=== PATIENT | female | born 1950 | race Caucasian/White ===

== ENCOUNTER 2016-03-26 20:10 | Observation (INO) | payer OTHER, MEDICARE ==
[~2016-03-26] VITALS: Ht 157.5 cm; Wt 68.9 kg
--- NOTE | 2016-03-26 20:42 | NUR ---
PT TO ED FOR FEELING "FUNNY" PER PT AND , THEY WERE AT A [employer] DINNER "AND SHE JUST WENT BLANK, LIKE SHE WASN'T THERE AND HER PUPILS WERE ALL DIALATED AND THEN IT WAS LIKE SHE WOKE UP AND SHE SAID SHE WAS DIZZY" PT NOW IN ED REPORTING FEELING "HEAVY" IN THE FRONT OF HER HEAD. ALL NEUROS GROSSLY INTACT, PERRLA, HAND GRASPS STRONG AND EQUAL.
--- NOTE | 2016-03-26 21:31 | ED AMS/SEIZURE/WEAK/DIZZY ---
History of Present Illness General Chief Complaint: General Adult Stated Complaint: "EPISODE AT DINNER, FELT OUT OF IT" PER PT Source: patient, family Exam Limitations: no limitations Vital Signs & Intake/Output Vital Signs & Intake/Output Vital Signs Date Time Temp Pulse Resp B/P Pulse O2 O2 Flow FiO2 Ox Delivery Rate 03/26 2237 97.5 97 20 98/60 99 Room Air 03/26 2037 97.1 109 18 118/75 100 Room Air ED Intake and Output 03/27 0000 03/26 1200 Intake Total Output Total Balance Patient 152 lb Weight Allergies Coded Allergies: No Known Allergies (03/26/16) Triage Note: PT TO ED FOR FEELING "FUNNY" PER PT AND , THEY WERE AT A [employer] "AND SHE JUST WENT BLANK, LIKE SHE WASN'T THERE AND HER PUPILS WERE ALL DIALATED AND THEN IT WAS LIKE SHE WOKE UP AND SHE SAID SHE WAS DIZZY" PT NOW IN ED REPORTING FEELING "HEAVY" IN THE FRONT OF HER HEAD. ALL NEUROS GROSSLY INTACT, PERRLA, HAND GRASPS STRONG AND EQUAL. Triage Nurses Notes Reviewed? yes Onset: Abrupt Duration: minute(s): Timing: single episode today Injury Environment: home Severity: moderate Modifying Factors: Improves With: rest. Associated Symptoms: diaphoresis HPI: 65 yo woman h/o diabetes, htn, hyperlipidemia, presents with episode of loss of consciousness while eating dinner at a restaurant. "I was just sitting there... Then my said that I just started staring straight ahead... I wasn't responsive... I looked pale and ashen." She does not recall the incident. She notes that she feels, "funny and a little out of it." The incident lasted several minutes. She is otherwise well. Past History Travel History Traveled to [place] past 21 day No Medical History Any Pertinent Medical History? see below for history Neurological: NONE EENT: NONE Cardiovascular: hypertension, HIGH CHOLESTEROL Respiratory: NONE Gastrointestinal: NONE Hepatic: NONE Renal: NONE Musculoskeletal: NONE Psychiatric: NONE Endocrine: diabetes Blood Disorders: NONE Cancer(s): NONE Surgical History Surgical History: none Psychosocial History What is your primary language Turkish Tobacco Use: Never used ETOH Use: denies use Illicit Drug Use: denies illicit drug use Family History Hx Contributory? No Review of Systems Review of Systems Constitutional: Reports: no symptoms. EENTM: Reports: no symptoms. Respiratory: Reports: no symptoms. Cardiovascular: Reports: no symptoms. GI: Reports: no symptoms. Genitourinary: Reports: no symptoms. Musculoskeletal: Reports: no symptoms. Skin: Reports: no symptoms. Neurological/Psychological: Reports: no symptoms. Hematologic/Endocrine: Reports: no symptoms. Immunologic/Allergic: Reports: no symptoms. All Other Systems: Reviewed and Negative Physical Exam Physical Exam General Appearance: well developed/nourished, mild distress Head: atraumatic, normal appearance Eyes: Bilateral: normal appearance, PERRL, EOMI. Ears, Nose, Throat: normal pharynx, normal ENT inspection, hearing grossly normal Neck: normal inspection, supple, full range of motion Respiratory: normal breath sounds, chest non-tender, no respiratory distress, quiet respiration, lungs clear Cardiovascular: regular rate/rhythm Gastrointestinal: normal bowel sounds, soft, non-tender, no organomegaly Back: normal inspection Extremities: normal range of motion Neurologic/Psych: no motor/sensory deficits, awake, alert, oriented x 3 Skin: intact, normal color Core Measures ACS in differential dx? No CVA/TIA Diagnosis: No Severe Sepsis Present: No Septic Shock Present: No Progress Differential Diagnosis: dysrhythmia vs pre-syncope vs mi vs other. Plan of Care: Orders Procedure Date/time Status Nothing by Mouth 03/27 B Active Patient Data 03/27 25 Active Saline Lock 03/[address] in observation 03/27 17 Active Misc Message 03/27 17 Active ED Holding Orders 03/27 17 Active Vital Signs 03/27 17 Active Code Status 03/27 17 Active TROPONIN LEVEL 03/26 2045 Complete COMPREHENSIVE METABOLIC PANEL 03/26 2045 Complete CBC WITHOUT DIFFERENTIAL 03/26 2045 Complete EKG 03/26 2045 Active Laboratory Tests 03/26/16 2144: Anion Gap 14, Estimated GFR 50 L, BUN/Creatinine Ratio 31.8 H, Glucose 183 H, Calcium 9.8, Total Bilirubin 0.6, AST 17, ALT 29, Alkaline Phosphatase 65, Troponin I < 0.01, Total Protein 6.5, Albumin 4.0, Globulin 2.5, Albumin/ Globulin Ratio 1.6, CBC w Diff NO MAN DIFF REQ, RBC 4.79, MCV 90.0, MCH 29.9, RDW 13.8, MPV 7.4, Gran % 71.4, Lymphocytes % 19.7 L, Monocytes % 6.9, Eosinophils % 1.7, Basophils % 0.3, Absolute Granulocytes 10.1 H, Absolute Lymphocytes 2.8, Absolute Monocytes 1.0 H, Absolute Eosinophils 0.2, Absolute Basophils 0, PUBS MCHC 33.2 Diagnostic Imaging: Viewed by Me: Radiology Read, CT Scan. Discussed w/RAD: Radiology Read, CT Scan. Initial ED EKG: normal axis, normal intervals, normal p-waves, normal QRS complex, normal sinus rhythm Departure Departure Disposition: STILL A PATIENT Condition: Stable Clinical Impression Primary Impression: Syncope Referrals: KATE PRINGLE,CANDY Yoon (PCP/Family) Departure Forms: Customer Survey General Discharge Information Observation Note Spoke With: LAWRENCE PRINGLE,EARL Mendoza Physician Advisor Notified: SONYA CORDOVA DO Place Patient In: Non-ED OBS Care Area Rationale for Observation: My rational for observation is as follows . pt with syncope, with multiple risk factors... merits rule out, monitoring, cards eval in am.
[2016-03-26 21:59] LABS: ABSOLUTE BASOPHIL COUNT 0 /CUMM (0.0-0.2); ABSOLUTE EOSINOPHIL COUNT 0.2 /CUMM (0.0-0.7); ABSOLUTE GRANULOCYTE CT 10.1 /CUMM (1.4-6.5); ABSOLUTE LYMPH COUNT 2.8 /CUMM (1.2-3.4); BASOPHIL % 0.3 % (0.0-2.0); EOSINOPHIL % 1.7 % (0-5); GRANULOCYTE % 71.4 % (42.2-75.2); HEMATOCRIT 43.1 % (37-47); MEAN CORPUSCULAR HGB 29.9 PG (27.0-31.0); MEAN CORPUSCULAR HGB CONC 33.2 G/DL (33.0-37.0); MEAN PLATELET VOLUME 7.4 FL (7.4-10.4); PLATELET COUNT 268 /CUMM (130-400); RBC DISTRIBUTION WIDTH 13.8 % (11.5-14.5); RED BLOOD CELL CT 4.79 /CUMM (4.20-5.40); WHITE BLOOD CELL COUNT 14.1 /CUMM (4.8-10.8)
--- NOTE | 2016-03-26 22:00 | NUR ---
PT A/O X4.RESP UNLABORED. SKIN WARM AND DRY. PT DENIES CP, SOB, DIZZINESS. NO APPARENT DISTRESS. FAMILY AT BEDSIDE
--- NOTE | 2016-03-26 22:43 | CT SCAN REPORT ---
EXAMINATION: CT HEAD WITHOUT CONTRAST CLINICAL INFORMATION: Altered mental status. COMPARISON: None. TECHNIQUE: Contiguous axial imaging was performed from the skull base to vertex without intravenous administration of contrast. DLP: 600 mGy-cm. FINDINGS: No acute intracranial abnormality. No acute intracranial hemorrhage, mass or mass effect or abnormal extra-axial fluid collections. The density within the dural venous sinuses is within normal limits. The ventricles are normal in size, without hydrocephalus. There are no focal areas of hypoattenuation within a vascular distribution to suggest acute transcortical ischemia. The basilar cisterns are patent. No acute calvarial abnormality is identified. Soft tissues appear unremarkable. The imaged paranasal sinuses and mastoid air cells are well aerated. IMPRESSION: No acute intracranial abnormality.
--- NOTE | 2016-03-26 23:00 | NUR ---
PT APPEARS COMFORTABLE. FAMILY AT BEDSIDE. NO APPARENT DISTRESS
--- NOTE | 2016-03-26 23:16 | RADIOLOGY REPORT ---
EXAMINATION: XR PORTABLE CHEST CLINICAL INFORMATION: Syncope. COMPARISON: None. TECHNIQUE: Portable view of the chest was obtained. 11:01 PM FINDINGS: No significant abnormality is noted involving the heart, lungs, mediastinum, bony thorax or soft tissues. IMPRESSION: No acute abnormality of the chest.
--- NOTE | 2016-03-27 00:19 | NUR ---
PT SLEEPING. RESP UNLABORED. NSR ON THE MONITOR. NO APPARENT DISTRESS
--- NOTE | 2016-03-27 00:35 | History & Physical ---
CHARO PRINGLE,[facility] 03/27/16 0034: General Information and HPI MD Statement: I have seen and personally examined TYLER GALAN and documented this H&P. The patient is a 65 year old F who presented with a patient stated chief complaint of syncope. Source of Information: patient Exam Limitations: no limitations History of Present Illness: This is a 65-year-old lady with past medical history significant for dyslipidemia, diabetes, hypertension, who presented to the hospital with chief complaint of brief episode of loss of consciousness. According to the patient, earlier today while she was eating dinner at a restaurant, her noticed the patient becoming pale, staring straight ahead and unresponsive for a brief period of time. Patient does not remember the event. However she does state that it was only a brief period of a 1-2 minutes. Patient reports that the stone has been everybody was around she did not exhibit any facial droop, impaired speech, or any focal neurological deficit. Denies headache, fall, dizziness, lightheadedness, shortness of breath, chest pain, palpitation, abdominal pain, seizure-like activity, confusion, urinary and bowel incontinence, vertigo, or a tinnitus. Allergies/Medications Allergies: Coded Allergies: No Known Allergies (03/26/16) Past History Travel History Traveled to [place] past 21 day No Medical History Neurological: NONE EENT: NONE Cardiovascular: hypertension, HIGH CHOLESTEROL Respiratory: NONE Gastrointestinal: NONE Hepatic: NONE Renal: NONE Musculoskeletal: NONE Psychiatric: NONE Endocrine: diabetes Blood Disorders: NONE Cancer(s): NONE Surgical History Surgical History: none Past Family/Social History Psychosocial History ETOH Use: denies use Illicit Drug Use: denies illicit drug use Review of Systems Review of Systems Constitutional: Denies: diaphoresis, malaise, weakness. EENTM: Denies: blurred vision, double vision, visual changes. Cardiovascular: Denies: see HPI. Respiratory: Reports: see HPI. GI: Denies: constipation, diarrhea. Genitourinary: Denies: dysuria, frequency, hematuria, hesitation. Musculoskeletal: Denies: joint pain, joint swelling, muscle pain, muscle stiffness. Skin: Denies: change in skin color, erythema, jaundice, lesions. Neurological/Psychological: Denies: anxiety, cognitive dysfunction, confusion, depressed, headache, numbness , paresthesia, pre-existing deficit, petit mal seizures, tremors, tonic-clonic seizures. Hematologic/Endocrine: Denies: bruising, bleeding, polyuria. Immunologic/Allergic: Reports: no symptoms. Exam & Diagnostic Data Last 24 Hrs of Vital Signs/I&O Vital Signs Date Time Temp Pulse Resp B/P Pulse O2 O2 Flow FiO2 Ox Delivery Rate 03/27 1623 98.8 80 16 134/71 96 Room Air 03/27 1325 97.0 74 20 115/56 96 Room Air 03/27 1155 97.0 80 20 111/61 96 03/27 1101 79 109/60 03/27 1049 79 15 109/60 96 Room Air Room Air 03/27 0954 99.0 80 18 110/70 98 Room Air 03/27 0952 98.0 85 18 110/70 98 Room Air 03/27 0819 Room Air Room Air 03/27 0804 98.2 78 20 100/62 96 Room Air 03/27 0800 98.0 98 100/62 03/26 2238 97.5 97 20 98/60 99 Room Air 03/26 2038 97.1 109 18 118/75 100 Room Air Intake & Output 03/27 1600 03/27 0800 03/27 0000 Intake Total 2079 Output Total Balance 2079 Intake, IV 500 Intake, Oral 1580 Patient 68.946 kg 68.946 kg Weight Physical Exam General Appearance Alert, Oriented X3, Cooperative, No Acute Distress Skin No Breakdown, No Significant Lesion HEENT Atraumatic, PERRLA, EOMI, Mucous Membr. moist/pink Neck Supple, No JVD, No thryomegaly, +2 Carotid Pulse wo Bruit, No LAD Lymphatic Cervical nl Cardiovascular Regular Rate, Normal S1, Normal S2, No Murmurs, Gallops Lungs Clear to Auscultation, Normal Air Movement Abdomen Normal Bowel Sounds, Soft, No Tenderness Neurological Normal Gait, Normal Speech, Strength at 5/5 X4 Ext, Normal Tone, Sensation Intact, Cranial Nerves 3-12 NL, Reflexes 2+, no dysmetria, dysdiadochokinesia, or gait abnormality noted Extremities No Clubbing, No Cyanosis, No Edema, Normal Pulses, No Tenderness/ Swelling Vascular Normal Pulses, Pulses Symmetrical Last 24 Hrs of Labs/Fabián: Laboratory Tests 03/27/16 0600: Sodium Cancelled, Potassium Cancelled, Chloride Cancelled, Carbon Dioxide Cancelled, Anion Gap Cancelled, BUN Cancelled, Creatinine Cancelled, BUN/ Creatinine Ratio Cancelled, Triglycerides Cancelled, Cholesterol Cancelled, LDL Cholesterol, Calc Cancelled, HDL Cholesterol Cancelled, Cholesterol/HDL Ratio Cancelled, TSH Cancelled 03/27/16 0405: Troponin I < 0.01 Diagnostic Data Other Results SERVICE DATE: 03/26/16-2045 EXAM TYPE: CAT - CT HEAD WO IV CONTRAST EXAMINATION: CT HEAD WITHOUT CONTRAST CLINICAL INFORMATION: Altered mental status. COMPARISON: None. TECHNIQUE: Contiguous axial imaging was performed from the skull base to vertex without intravenous administration of contrast. DLP: 600 mGy-cm. FINDINGS: No acute intracranial abnormality. No acute intracranial hemorrhage, mass or mass effect or abnormal extra-axial fluid collections. The density within the dural venous sinuses is within normal limits. The ventricles are normal in size, without hydrocephalus. There are no focal areas of hypoattenuation within a vascular distribution to suggest acute transcortical ischemia. The basilar cisterns are patent. No acute calvarial abnormality is identified. Soft tissues appear unremarkable. The imaged paranasal sinuses and mastoid air cells are well aerated. IMPRESSION: No acute intracranial abnormality. Assessment/Plan Assessment: This is a 65-year-old lady with a past medical history of dyslipidemia, hypertension, diabetes presents to the ED for evaluation after experiencing a sudden episode of possible transient presyncope episode. Assessment and plan #Syncope versus presyncope It is not clear whether patient actually had a complete syncopal episode other than the reporting patient was staring and not responding to him for about, a 1-[address] is unremarkable for any suggestion of CVA. Patient most likely had a presyncopal episode. Possible differentials include TIA (even though this is highly unlikely due to the focal neurological deficits) versus seizures (however she didn't have any typical symptoms of seizure). Does not have any palpitation chest pain or any other symptoms suggestive of cardiac etiology. He does not also endorse any history of migraines or chronic headaches. Plan * Admit to telemetry with 24-hour monitoring for PAF * Troponins and EKG to rule out ACS * Will check orthostatics * Will start patient on aspirin for now * May consider EEG (will defer to neurology) * Carotid Doppler * Will obtain neurology consult * Will obtain cardiology consult #History of dyslipidemia * Continue statin therapy * Will obtain random lipid panel and fasting lipid panel #History of hypertension * Continue home BP meds #History of diabetes * NovoLog low SSC As Ranked By This Provider Problem List: 1. Syncope Core Measures/Miscellaneous Acute Coronary Syndrome ACS Diagnosis: No Cerebrovascular Accident CVA/TIA Diagnosis: No Congestive Heart Failure CHF Diagnosis: No Venous Thromboembolism VTE Risk Factors: Age > 40 VTE Prophylaxis Ordered Inpt: Mechanical (ALPS/TEDS) No Mech VTE prophylaxis d/t: No contraindications No VTE Pharm Prophylaxis d/t: No contraindications VTE Diagnosis: No VTE Type: NONE VTE Confirmed by (Test): NONE Severe Sepsis Severe Sepsis Present: No Septic Shock Septic Shock Present: No Miscellaneous Documentation Attending Case Discussed With: LAWRENCE PRINGLE,EARL Mendoza Primary Care Physician: CANDY LOVE MD Patient sees these Specialists none Level of Patient Care: Telemetry CADEN KAM 03/27/16 0353: General Information and HPI Allergies/Medications Home Med list Lisinopril 10 MG TABLET 1 TAB PO DAILY HIGH BLOOD PRESSURE Metformin HCl (Metformin HCl ER) 500 MG TAB.ER.24H 1 TAB PO BID DM (Reported) Simvastatin (Simvastatin*) 20 MG TABLET 1 TAB PO QPM Cholesterol (Reported) Resident Review Statement Resident Statement: examined this patient, discussed with internal communications intern, agreed with internal communications intern, discussed with nursing, reviewed images Other Findings: This is a 65-year-old lady with past medical history significant for dyslipidemia, diabetes, hypertension, who presented to the hospital with chief complaint of brief episode of loss of consciousness. According to the patient, earlier today while she was eating dinner at a restaurant, her noticed the patient becoming pale, staring straight ahead and unresponsive for a brief period of time. Patient does not remember the event. Denies headache, fall, dizziness, lightheadedness, shortness of breath, chest pain, abdominal pain, urinary symptoms. The patient has never followed through the [place], has never done echo or stress test. Vital signs on admission: Temperature 97.1, pulse rate 109, respiratory rate 18, blood pressure 118/75, oxygen saturation 100% on room air. Physical exam at the time of admission: AAO 3, NAD, HEENT: Head atraumatic, normocephalic, PERRLA, EOMI, normal funduscopy. Normal pharynx. Neck: Supple, no JVP, no thyromegaly, no lymphadenopathy. Cardiovascular: S1-S2 auscultated, no murmurs. Lungs CTA BL. Abdomen: Normal bowel sounds, soft, nondistended, nontender. No lower extremity edema. Neurology exam nonfocal; cranial nerves III-12 intact, [id number] intact, no nystagmus, reflexes normal, strength 5/ 54 extremities. Gait normal. The patient passed bedside swallow eval. Orthostatics negative. Labs and imaging reviewed. Patient received 1 L of IV normal saline in the ED. Problem list/plan: #Loss of consciousness: * Head CT negative for any acute intracranial pathology. * Syncope versus seizure versus TIA(ABCD score:1-age>60) * Negative orthostatics * Patient passed bedside swallow eval * child monitor * Vitals per protocol * Rule out ACS * Consider brain MRI * Aspirin 3251; start aspirin 81 mg daily next day * Atorvastatin 40 mg daily * Continue lisinopril at home dose * Echocardiogram * Doppler carotid * EEG * TSH, hemoglobin A1c, lipid panel * Formal swallow evaluation * PT/OT/speech therapy * Neurology consult * Cardiology consult #History of diabetes: * Accu-Cheks * Diabetes diet * NovoLog sliding scale * Hemoglobin A1c #Hypertension and dyslipidemia: * Continue lisinopril at home dose * Changed statin to atorvastatin 40 mg daily #DVT prophylaxis at all times #patient is full code The case was discussed with attending, Dr. Ballard who agrees with the above plan. LAWRENCE PRINGLE,[facility] 03/28/16 1122: Attending MD Review Statement Attending Statement Attending MD Statement: examined this patient, discuss w/resident/PA/ROLLING CHAIR PUSHER, agreed w/resident/PA/ROLLING CHAIR PUSHER, reviewed EMR data (avail) Attending Assessment/Plan: This is a 65-year-old female who was at a restaurant when she suddenly became somewhat unresponsive. She was diaphoretic. Her told her pupils were dilated. She did not actually fall down but was unresponsive for a few minutes. She actually recovered and went home and called her doctor who recommended that she come to the emergency department. When she described this episode she was recommended admission for observation. On initial examination there were no significant abnormalities and her EKG and enzymes were negative. The patient will be watched overnight and have a neurology consultation. By description this was probably a vasovagal episode and if her workup is negative she will be discharged in the a.m.
[2016-03-27] MEDS ORDERED: METFORMIN HCL500 M4 PO (01:07)
[2016-03-27] MEDS ORDERED: LISINOPRIL20 M1 PO (01:07)
[2016-03-27] MEDS ORDERED: SIMVASTATIN20 M2 PO (01:07)
--- NOTE | 2016-03-27 01:15 | NUR ---
PER RN LEAD MINER MARILYNN GARIBAY IS AN ED HOLD
--- NOTE | 2016-03-27 01:33 | NUR ---
PT AMBULATORY TO BATHROOM. GAIT STEADY. TOLERTED WELL
[2016-03-27 08:04] VITALS: BP 100/62
--- NOTE | 2016-03-27 08:27 | NUR ---
PT RESTING IN BED. OFFERS NO COMPLAINTS. NSR 78 ON TROLLEY OPERATOR. PT FED, INDEPENDENTLY PERFORMED PERSONAL HYGEINE. INFORMED OF NEED FOR EKG AND TROPONIN AT 0900.
[2016-03-27 09:54] VITALS: BP 110/70
--- NOTE | 2016-03-27 10:47 | NUR ---
PT'S BP 109/60, HOUSE STAFF TEXT-PAGED IN REGARDS TO MEDICATIONS. AWAITING CALL BACK.
--- NOTE | 2016-03-27 11:48 | NUR ---
PT NOT MEDICATED WITH INSULIN PER SLIDING SCALE.
--- NOTE | 2016-03-27 11:52 | NUR ---
PT RESTING COMFORTABLY ON BED. NO DISTRESS NOTED OR REPORTED. CONSUMED 100% OF MEAL TRAY.
--- NOTE | 2016-03-27 13:42 | NUR ---
Physical therapy: Orders for PT eval received, chart reviewed. Per chart, pt I with ambulation. Spoke with nursing staff who confirms that pt is getting OOB and ambulating independently. No skilled PT needed at this time. PT will not be following patient. Thank you.
--- NOTE | 2016-03-27 14:20 | NUR ---
PATIENT ASSIGNED TO ROOM 185 BED 2
--- NOTE | 2016-03-27 14:59 | NUR ---
REPORT GIVEN TO OBDULIA URIARTE TO TELE.
--- NOTE | 2016-03-27 15:13 | NUR ---
[facility] CALLED FOR TRANSPORT.
--- NOTE | 2016-03-27 15:34 | Cons- Neurology ---
General Information and HPI Consulting Request Date of Consult: 03/27/16 Requested By: EARL BRAVO MD, V. Reason for Consult: AMS Source of Information: patient Exam Limitations: no limitations History of Present Illness: This is a very pleasant 65 year old right handed woman who is usually in good health who presented to the hospital after an incident of a change in mental status that occurred yesterday. She was at a restuarant with her and then noted that the ambient light was "dimming" in and out. She felt lightheaded as if the lights are going to go out and was feeling somewhat detached from her surroundings. Her described her staring blankly and looking glazed. She was not responding to him. After a few minutes she seemed to snap out of it and returned to normal. She was therefore brought to the hospital. She has been fine since without recurrence. On arrival her BP was lower then normal for her at one point the systolic hitting 90. Her EKG was normal and telemetry unrevealing. She denies ever having any other incidents or having any other medical history that could predispose her to a seizure. She denies any food allergies, although she had an odd allergy with the left side of her face puffing up and becoming red last week that eventually responded to steroids. Allergies/Medications Allergies: Coded Allergies: No Known Allergies (03/26/16) Home Med List: Lisinopril 20 MG TABLET 1 TAB PO DAILY daily (Reported) Metformin HCl (Metformin HCl ER) 500 MG TAB.ER.24H 1 TAB PO BID DM (Reported) Simvastatin (Simvastatin*) 20 MG TABLET 1 TAB PO QPM Cholesterol (Reported) Current Medications: Current Medications Sig/Agnes Start time Last Medication Dose Route Stop Time Status Admin Aspirin 81 MG DAILY 03/28 1000 AC PO Aspirin 0 .STK-MED ONE 03/27 0316 DC PO Aspirin 325 MG ONCE ONE 03/27 0145 DC 03/27 PO 03/27 0146 0331 Atorvastatin Calcium 40 MG 1700 03/27 1700 AC PO Insulin Aspart 0 TIDAC 03/27 0330 AC SC Insulin Aspart 0 ONCE ONE 03/27 0200 CAN SC 03/27 0400 Lisinopril 0 .STK-MED ONE 03/27 1022 DC PO Lisinopril 20 MG DAILY 03/27 1000 AC PO Sodium Chloride 1,000 ML BOLUS ONE 03/26 2245 DC 03/26 IV 03/26 8519 [id number] Past History Travel History Traveled to [place] past 21 day No Medical History Blood Transfusion Hx: No Neurological: NONE EENT: NONE Cardiovascular: hypertension, HIGH CHOLESTEROL Respiratory: NONE Gastrointestinal: NONE Hepatic: NONE Renal: NONE Musculoskeletal: NONE Psychiatric: NONE Endocrine: diabetes Blood Disorders: NONE Cancer(s): NONE Surgical History Surgical History: 1 Psychosocial History Where Do You Live? Home Smoking Status: Never Smoked ETOH Use: denies use Illicit Drug Use: denies illicit drug use Exam & Diagnostic Data Vital Signs and I&O Vital Signs Date Time Temp Pulse Resp B/P Pulse O2 O2 Flow FiO2 Ox Delivery Rate 03/27 1325 97.0 74 20 115/56 96 Room Air 03/27 1155 97.0 80 20 111/61 96 03/27 1101 79 109/60 03/27 1049 79 15 109/60 96 Room Air Room Air 03/27 0954 99.0 80 18 110/70 98 Room Air 03/27 0952 98.0 85 18 110/70 98 Room Air 03/27 0819 Room Air Room Air 03/27 0804 98.2 78 20 100/62 96 Room Air 03/27 0800 98.0 98 100/62 03/26 2238 97.5 97 20 98/60 99 Room Air 03/26 2038 97.1 109 18 118/75 100 Room Air Intake & Output 03/27 1600 03/27 0800 03/27 0000 Intake Total 2079 Output Total Balance 2079 Intake, IV 500 Intake, Oral 1580 Patient 152 lb 152 lb Weight Physical Exam: Alert and oriented x3. Good attention and concentration. Fluent and comprehends. Good short term memory and fund of knowledge. S1 and S2 are normal. RRR. Good pulses. EOMI, GOLDEN, no nystagmus, face is symmetric, tongue midline, uvula raises in midline, hearing normal. V1-V3 sensation is equal, TPZ and SCM strong. Strength is 5/5 throughout the distribution with no drift. Tapping is rapid and equal. Reflexes mildly hyper but symmetric. Toes are downgoing. FNF is normal. Romberg negative and gait stable. Last 48 Hours of Lab Results: Laboratory Tests 03/27 03/27 03/27 0902 0600 0405 Chemistry Sodium (137 - 145 mmol/L) Pending Cancelled Potassium (3.5 - 5.1 mmol/L) Pending Cancelled Chloride (98 - 107 mmol/L) Pending Cancelled Carbon Dioxide (22 - 30 mmol/L) Pending Cancelled Anion Gap (5 - 16) Pending Cancelled BUN (7 - 17 mg/dL) Pending Cancelled Creatinine (0.5 - 1.0 mg/dL) Pending Cancelled BUN/Creatinine Ratio (7 - 25 %) Pending Cancelled Troponin I (< 0.11 ng/ml) < 0.01 < 0.01 Triglycerides (<150 mg/dL) Pending Cancelled Cholesterol (<200 MG/DL) Pending Cancelled LDL Cholesterol, Calc (65 - 129 mg/dL) Pending Cancelled HDL Cholesterol (40 - 60 mg/dL) Pending Cancelled Cholesterol/HDL Ratio (0.00 - 4.23 %) Pending Cancelled TSH (0.270 - 4.200 uIU/mL) Pending Cancelled 03/26 2144 Chemistry Sodium (137 - 145 mmol/L) 136 L Potassium (3.5 - 5.1 mmol/L) 4.4 Chloride (98 - 107 mmol/L) 93 L Carbon Dioxide (22 - 30 mmol/L) 29 Anion Gap (5 - 16) 14 BUN (7 - 17 mg/dL) 35 H Creatinine (0.5 - 1.0 mg/dL) 1.1 H Estimated GFR (>60 ml/min) 50 L BUN/Creatinine Ratio (7 - 25 %) 31.8 H Glucose (65 - 99 mg/dL) 183 H Calcium (8.4 - 10.2 mg/dL) 9.8 Total Bilirubin (0.2 - 1.3 mg/dL) 0.6 AST (14 - 36 U/L) 17 ALT (9 - 52 U/L) 29 Alkaline Phosphatase (<127 U/L) 65 Troponin I (< 0.11 ng/ml) < 0.01 Total Protein (6.3 - 8.2 g/dL) 6.5 Albumin (3.5 - 5.0 g/dL) 4.0 Globulin (1.9 - 4.2 gm/dL) 2.5 Albumin/Globulin Ratio (1.1 - 2.2 %) 1.6 Hematology CBC w Diff NO MAN DIFF REQ WBC (4.8 - 10.8 /CUMM) 14.1 H RBC (4.20 - 5.40 /CUMM) 4.79 Hgb (12.0 - 16.0 G/DL) 14.3 Hct (37 - 47 %) 43.1 MCV (81.0 - 99.0 FL) 90.0 MCH (27.0 - 31.0 PG) 29.9 RDW (11.5 - 14.5 %) 13.8 Plt Count (130 - 400 /CUMM) 268 MPV (7.4 - 10.4 FL) 7.4 Gran % (42.2 - 75.2 %) 71.4 Lymphocytes % (20.5 - 51.1 %) 19.7 L Monocytes % (1.7 - 9.3 %) 6.9 Eosinophils % (0 - 5 %) 1.7 Basophils % (0.0 - 2.0 %) 0.3 Absolute Granulocytes (1.4 - 6.5 /CUMM) 10.1 H Absolute Lymphocytes (1.2 - 3.4 /CUMM) 2.8 Absolute Monocytes (0.10 - 0.60 /CUMM) 1.0 H Absolute Eosinophils (0.0 - 0.7 /CUMM) 0.2 Absolute Basophils (0.0 - 0.2 /CUMM) 0 PUBS MCHC (33.0 - 37.0 G/DL) 33.2 Imaging/Other Studies: NCHCT is normal. EKG normal. Assessment/Plan Assessment: 65 year old woman with new onset change in mental status most consistent with pre-syncope. Her BP was low, and she did not have any focal deficits which goes against a TIA. Other then being glazed there is nothing else to support a complex partial seizure. Her EKG and troponins are normal. In my opinion, this is most likely a benign pre-syncope. From my standpoint she could be discharged and complete an EEG as an outpt. If this recurs a more extensive workup would be recommended, however, this is for now an isolated event. Neurology signing off. Recommendations: see above. Consult Acknowledgment - Thank you for your consult request.
[2016-03-27 16:23] VITALS: BP 134/71
--- NOTE | 2016-03-27 16:32 | ULTRASOUND REPORT ---
EXAMINATION: BILATERAL DUPLEX CAROTID ULTRASOUND CLINICAL INDICATION: Altered mental status. TIA. COMPARISON: CT of the head done on 03/26/2015. TECHNIQUE: Real-time ultrasound and Doppler techniques (integrating B-mode 2D vascular images, Doppler spectral analysis and color flow Doppler imaging) were utilized to interrogate the extracranial carotid and vertebral arteries bilaterally. . FINDINGS: On the RIGHT, there is mild atherosclerotic plaques at the distal part of common carotid artery extending into the origin, proximal part of both internal and external carotid arteries. In the distal CCA, the peak systolic velocity is 81 cm/sec. In the proximal ICA, the peak systolic velocity is 87 cm/sec, and the end diastolic velocity is 21.1 cm/sec. The ICA/CCA ratio is 1.07. On the LEFT, there is mild atherosclerotic plaque seen within the distal part of the common carotid artery extending into the origin, proximal part of both internal and external carotid arteries. In the distal CCA, the peak systolic velocity is 108 cm/sec. In the proximal ICA, the peak systolic velocity is 107 cm/sec, and the end diastolic velocity is 23.5 cm/sec. The ICA/CCA ratio is 0.99. The vertebral arteries show antegrade flow with normal waveforms bilaterally. IMPRESSION: 1. The right internal carotid artery shows no hemodynamically significant stenosis. 2. The left internal carotid artery shows no hemodynamically significant stenosis. 3.The duplex velocities are suggestive of less than 49% stenosis. 4. Both vertebral arteries are patent and show antegrade flow.
[2016-03-27 22:44] VITALS: BP 90/48
[2016-03-28 07:52] VITALS: BP 118/68
--- NOTE | 2016-03-28 11:14 | PN- Cardiology ---
Subjective Subjective: The Patient is feeling well today. She has been ambulatory. She has no weakness dizziness etc. Her blood pressures are trending a little bit on the low side. Objective Vital Signs and I&Os Vital Signs Date Time Temp Pulse Resp B/P Pulse O2 O2 Flow FiO2 Ox Delivery Rate 03/28 0752 78 118/68 03/27 2244 98.0 70 18 90/48 97 Room Air 03/27 2221 Room Air 03/27 1623 98.8 80 16 134/71 96 Room Air 03/27 1325 97.0 74 20 115/56 96 Room Air 03/27 1155 97.0 80 20 111/61 96 Intake & Output 03/28 1600 03/28 0800 03/28 0000 03/27 1600 03/27 0800 03/27 0000 Intake Total 214 997 6133 Output Total Balance 222 169 0543 Intake, IV 500 Intake, Oral 190 717 8455 Patient 152 lb 152 lb Weight Physical Exam: She is in no distress HEENT exam is normal Chest is clear Heart reveals regular rhythm and no murmurs Extremities good pulses no edema Current Medications: Current Medications Sig/Agnes Start time Last Medication Dose Route Stop Time Status Admin Acetaminophen 650 MG ONCE ONE 03/27 1600 DC 03/27 PO 03/27 1601 1558 Aspirin 81 MG DAILY 03/28 1000 AC 03/28 PO 0750 Atorvastatin Calcium 40 MG 1700 03/27 1700 AC 03/27 PO 1828 Insulin Aspart 0 TIDAC 03/27 0330 AC SC Lisinopril 20 MG DAILY 03/27 1000 AC 03/28 PO 0752 Results Last 48 Hrs of Labs/Mics: Laboratory Tests 03/28/16 0630: Hemoglobin A1c Pending 03/27/16 1800: Urine Color STRAW, Urine Clarity CLEAR, Urine pH 6.5, Ur Specific [place] 1.015, Urine Protein NEG, Urine Ketones NEG, Urine Nitrite NEG, Urine Bilirubin NEG, Urine Urobilinogen 0.2, Ur Leukocyte Esterase NEG, Ur Microscopic EXAM NOT REQUIRED, Urine Hemoglobin NEG, Urine Glucose NEG 03/27/16 0902: Anion Gap 10, Estimated GFR 56 L, BUN/Creatinine Ratio 26.0 H, Troponin I < 0.01, Triglycerides 59, Cholesterol 140, LDL Cholesterol, Calc 45 L, HDL Cholesterol 84 H, Cholesterol/HDL Ratio 2, TSH 0.566 03/27/16 0600: Sodium Cancelled, Potassium Cancelled, Chloride Cancelled, Carbon Dioxide Cancelled, Anion Gap Cancelled, BUN Cancelled, Creatinine Cancelled, BUN/ Creatinine Ratio Cancelled, Triglycerides Cancelled, Cholesterol Cancelled, LDL Cholesterol, Calc Cancelled, HDL Cholesterol Cancelled, Cholesterol/HDL Ratio Cancelled, TSH Cancelled 03/27/16 0405: Troponin I < 0.01 03/26/16 2144: Anion Gap 14, Estimated GFR 50 L, BUN/Creatinine Ratio 31.8 H, Glucose 183 H, Calcium 9.8, Total Bilirubin 0.6, AST 17, ALT 29, Alkaline Phosphatase 65, Troponin I < 0.01, Total Protein 6.5, Albumin 4.0, Globulin 2.5, Albumin/ Globulin Ratio 1.6, CBC w Diff NO MAN DIFF REQ, RBC 4.79, MCV 90.0, MCH 29.9, RDW 13.8, MPV 7.4, Gran % 71.4, Lymphocytes % 19.7 L, Monocytes % 6.9, Eosinophils % 1.7, Basophils % 0.3, Absolute Granulocytes 10.1 H, Absolute Lymphocytes 2.8, Absolute Monocytes 1.0 H, Absolute Eosinophils 0.2, Absolute Basophils 0, PUBS MCHC 33.2 Assessment/Plan Assessment/Plan The patient is doing well at this time. She is asymptomatic since admission. I think she had a vasovagal episode by description associated with mild dehydration. Neurology has cleared her. I think she can be discharged. Since her blood pressures are running a little low I would recommend decreasing her lisinopril dose to 10 mg daily. She can follow-up with her primary physician regarding her blood pressure as an outpatient. Continue telemetry? Not applicable
[2016-03-28] MEDS ORDERED: LISINOPRIL10 M1 PO (12:20)
== END 2016-03-28 13:00 ==
LOC: ERH 20:10 → ERHI 03-27 00:18 → 1NO 03-27 15:13
PROVIDERS: Internal Medicine; Pediatrics; ADMIT Internal Medicine
DX: R55 Syncope and collapse (principal); E78.5 Hyperlipidemia, unspecified; E11.9 Type 2 diabetes mellitus without complications; I10 Essential (primary) hypertension
CPT/HCPCS: 2000; 81003; 82436; 93005; 93010; G0378; J3490